=== PATIENT | female | born 1975 | race Two or more races ===

== ENCOUNTER 2017-11-20 10:51 | Emergency (ER) | payer OTHER ==
[2017-11-20] MEDS ORDERED: ASPIRIN 81 MG TABLET CHEW PO ONE (12:00)
[2017-11-20] MEDS ORDERED: ASPIRIN 81 MG TABLET CHEW ONE (12:08)
[2017-11-20 12:28] LABS: BASOPHILS # (AUTO) 0.03 x10^3/uL (0-0.1); BASOPHILS % (AUTO) 0 % (0-1); EOSINOPHILS # (AUTO) 0.12 x10^3/uL (0-0.4); EOSINOPHILS % (AUTO) 2 % (1-7); LYMPHOCYTES # (AUTO) 1.94 x10^3/uL (1-3.4); LYMPHOCYTES % (AUTO) 29 % (22-44); MD NO; MEAN CORPUSCULAR HEMOGLOBIN 31.2 pg (27.0-34.8); MEAN CORPUSCULAR VOLUME 91.8 fL (80-100); MEAN PLATELET VOLUME 8.9 fL (7.4-10.4); MONOCYTES # (AUTO) 0.71 x10^3/uL (0.2-0.8); MONOCYTES % (AUTO) 11 % (2-9); NEUTROPHILS # (AUTO) 3.94 x10^3/uL (1.8-6.8); NEUTROPHILS % (AUTO) 59 % (42-75); PLATELET COUNT 221 x10^3/uL (130-400); RED BLOOD COUNT 4.62 x10^6/uL (3.82-5.3); RED CELL DISTRIBUTION WIDTH 12.9 % (9.6-15.2)
[2017-11-20 12:38] LABS: ALANINE AMINOTRANSFERASE 24 U/L (12-78); ANION GAP 8 mmol/L (5-15); CALCIUM 8.8 mg/dL (8.5-10.1); CHLORIDE 108 mmol/L (98-107); CREATININE 0.84 mg/dL (0.55-1.02)
[2017-11-20 12:43] LABS: ALKALINE PHOSPHATASE 90 U/L (45-117); BILIRUBIN,TOTAL 0.4 mg/dL (0.2-1.0); TOTAL PROTEIN 8.1 g/dL (6.4-8.2); TROPONIN I < 0.015 ng/mL (0.000-0.045)
[2017-11-20 13:02] VITALS: BP 146/86
== END 2017-11-20 14:28 | disposition home or self-care (01) ==
LOC: ED 11:27
DX: R07.89 Other chest pain (principal)
CPT/HCPCS: 36415; 71046; 76700; 80053; 83690; 84484; 85025; 93005; 99285

== ENCOUNTER 2019-07-15 13:15 | Emergency (ER) | payer OTHER ==
[~2019-07-15] VITALS: Ht 162.6 cm; Wt 52.2 kg
--- NOTE | 2019-07-15 13:45 | NUR ---
PT TO ROOM 5 PER PEDIS. PT C/O LEFT FLANK PAIN THAT IS NOW WRAPPING AROUND TO THE LOWER LEFT QUADRANT. PAIN STARTED YESTERDAY BUT HAS INCREASED TODAY. AT BEDSIDE. URINE COLLECTED AND SENT.
[2019-07-15] MEDS ORDERED: ONDANSETRON 2MG/ML, 2ML IVPush ONE (14:00)
[2019-07-15] MEDS ORDERED: SODIUM CHLORIDE FLUSH 10ML SYR IVF ONE (14:00)
[2019-07-15] MEDS ORDERED: MORPHINE SULFATE 4 MG/ML, 1ML ONE ×2 (14:06→15:09)
[2019-07-15] MEDS ORDERED: ONDANSETRON 2MG/ML, 2ML ONE (14:06)
[2019-07-15 14:12] LABS: HCG UR SG 1.007 (1.003-1.030)
--- NOTE | 2019-07-15 14:15 | NUR ---
IV PLACED AND PAIN MEDICATIONS STARTED. PT RESTING COMFORTABLY. PT PLACED ON MONITOR. REMAINS AT BEDSIDE.
[2019-07-15 14:18] LABS: MICROSCOPIC INDICATED
[2019-07-15 14:28] LABS: BASOPHILS # (AUTO) 0.01 x10^3/uL (0-0.1); BASOPHILS % (AUTO) 0 % (0-1); EOSINOPHILS # (AUTO) 0.01 x10^3/uL (0-0.4); EOSINOPHILS % (AUTO) 0 % (1-7); LYMPHOCYTES # (AUTO) 1.03 x10^3/uL (1-3.4); LYMPHOCYTES % (AUTO) 13 % (22-44); MD NO; MEAN CORPUSCULAR HEMOGLOBIN 30.4 pg (27.0-34.8); MEAN CORPUSCULAR VOLUME 92.2 fL (80-100); MEAN PLATELET VOLUME 9.9 fL (7.4-10.4); MONOCYTES # (AUTO) 0.41 x10^3/uL (0.2-0.8); MONOCYTES % (AUTO) 5 % (2-9); NEUTROPHILS # (AUTO) 6.74 x10^3/uL (1.8-6.8); NEUTROPHILS % (AUTO) 82 % (42-75); PLATELET COUNT 197 x10^3/uL (130-400); RED BLOOD COUNT 5.16 x10^6/uL (3.82-5.3); RED CELL DISTRIBUTION WIDTH 13.4 % (9.6-15.2)
[2019-07-15] MEDS: MORPHINE SULFATE 4 MG/ML, 1ML IVPush PRN ×2 (14:28→15:37)
[2019-07-15 14:29] LABS: ALBUMIN 4.8 g/dL (3.4-5.0); ANION GAP 9 mmol/L (5-15); CALCIUM 9.6 mg/dL (8.5-10.1); CHLORIDE 108 mmol/L (98-107)
[2019-07-15 14:33] LABS: ALANINE AMINOTRANSFERASE 19 U/L (12-78); ALKALINE PHOSPHATASE 83 U/L (45-117); BILIRUBIN,TOTAL 0.7 mg/dL (0.2-1.0); CREATININE 0.98 mg/dL (0.55-1.02); TOTAL PROTEIN 9.3 g/dL (6.4-8.2)
[2019-07-15 14:34] LABS: CULTURE INDICATED? NO
--- NOTE | 2019-07-15 14:38 | NUR ---
CT MUST SCAN CODE NEURO PATIENT BEFORE THIS ONE
--- NOTE | 2019-07-15 14:42 | NUR ---
CODE NEURO CANCELLED; GETTING THIS PATIENT NOW
[2019-07-15 14:54] VITALS: BP 110/72
--- NOTE | 2019-07-15 14:57 | NUR ---
PT RETURNED FROM CT. STILL RESTING COMFORTABLY.,
[2019-07-15] MEDS ORDERED: OMNIPAQUE 350 MG/ML, 100ML BOTTLE ONE (15:02)
[2019-07-15] MEDS ORDERED: HYDROcodone/APAP 5/325 TABLET PO ONE (15:30)
[2019-07-15] MEDS ORDERED: HYDROcodone/APAP 5/325 TABLET ONE (15:34)
== END 2019-07-15 16:01 ==
LOC: ED 15:40
DX: N13.2 Hydronephrosis with renal and ureteral calculous obstruction (principal); R10.9 Unspecified abdominal pain; I10 Essential (primary) hypertension
CPT/HCPCS: 36415; 74177; 80053; 81001; 81025; 83605; 83690; 85025; 87040; 96374; 96375; 99285; J2270; J2405; Q9967